=== PATIENT | female | born 1955 | race Caucasian/White ===

== ENCOUNTER 2023-02-09 08:24 | Day surgery (SDC) | payer OTHER ==
[~2023-02-09 08:24] MED LIST: ATORVASTATIN CA20 MG PO; COZAAR50 MG PO; FLECAINIDE ACET50 MG PO; GLYCOPYRROLATE PO; SINGULAIR10 MG PO; XARELTO20 M1 PO
== END 2023-02-09 15:20 | disposition home or self-care (01) ==
LOC: AMB-ENDOS 08:24
PROVIDERS: ATTEND Colon & Rectal Surgery
DX: K63.5 Polyp of colon (principal); K57.30 Diverticulosis of large intestine without perforation or abscess without bleeding; R15.9 Full incontinence of feces; Z20.822 Contact with and (suspected) exposure to COVID-19; K64.0 First degree hemorrhoids

== ENCOUNTER 2023-02-14 07:06 | Day surgery (SDC) | payer OTHER ==
[~2023-02-14] VITALS: Ht 149.9 cm; Wt 73.0 kg
== END 2023-02-14 13:35 | disposition home or self-care (01) ==
LOC: U 07:06 → CIR.AMB 07:06
PROVIDERS: ATTEND Colon & Rectal Surgery
DX: T85.111A Breakdown (mechanical) of implanted electronic neurostimulator of peripheral nerve electrode (lead), initial encounter (principal); R15.9 Full incontinence of feces; R32 Unspecified urinary incontinence; I10 Essential (primary) hypertension; E78.5 Hyperlipidemia, unspecified; Z20.822 Contact with and (suspected) exposure to COVID-19
CPT/HCPCS: 64590; 95971; C1767